=== PATIENT | male | born 1980 | race Caucasian/White ===

== ENCOUNTER 2017-01-02 21:13 | Emergency (ER) | payer SELFPAY ==
[~2017-01-02] VITALS: Ht 170.2 cm; Wt 86.0 kg
[2017-01-02 21:17] VITALS: BP 140/70; PULSE 101; RESP 16; TEMP 97.5; O2SAT 96
[2017-01-02] MEDS ORDERED: FLUORESCEIN SOD 1 MG STRIP LEFT EYE ONE (22:00)
[2017-01-02] MEDS ORDERED: PROPARACAINE HCL 0.5% OPHT SOLN 15 ML BTL LEFT EYE ONE (22:00)
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
[2017-01-02] MEDS ORDERED: ERYTOIN10 LEFT EYE (23:40)
== END 2017-01-03 00:02 | disposition home or self-care (01) ==
LOC: NEPD 21:13
DX: S05.02XA Injury of conjunctiva and corneal abrasion without foreign body, left eye, initial encounter (principal); Y08.89XA Assault by other specified means, initial encounter
CPT/HCPCS: 70450; 70486; 99285